=== PATIENT | female | born 1985 | race Caucasian/White ===

== ENCOUNTER 2022-04-05 21:25 | Observation (INO) | payer BC ==
[2022-04-05 21:42] VITALS: BMI 24.1
[2022-04-05] MEDS ORDERED: Zolpidem Tartrate 5 MG TAB PO PRN (22:24)
[2022-04-05] MEDS ORDERED: traMADol HCl 50 MG TAB PO PRN (22:28)
[2022-04-05] MEDS ORDERED: Ondansetron PF 4 MG/2 ML Vial IVP PRN (22:29)
[2022-04-05] MEDS: Acetaminophen 500 MG TAB PO SCH (23:41)
[2022-04-06] MEDS: Ibuprofen 800 MG TAB PO SCH ×2 (00:46→08:51)
[2022-04-06 04:29] LABS: #Basophils 0.1 10x3/uL (0.0-0.2); #Eosinphils 0.1 10x3/uL (0.0-0.5); %Basophils 0.4 % (0.0-2.0); %Eosinophils 1.1 % (0.0-6.0); %Lymphocytes 20.1 % (18.0-47.0); %Monocytes 8.9 % (0.0-10.0); %Neutrophils 69.2 % (40.0-75.0); Hemoglobin 11.5 g/dL (12.0-15.5); Mean Corpuscular HGB CONC 34.7 g/dL (32.0-36.0); Mean Corpuscular Hemoglobin 31.6 pg (27.0-33.0); Mean Corpuscular Volume 90.9 fl (81.6-98.3); Mean Platelet Volume 9.5 fl (7.4-10.4); Platelet Count 235 10x3/uL (150-450); RBC Distribution Width 12.1 % (11.5-14.5); Red Blood Cell (RBC) Count 3.64 10x6/uL (3.90-5.03); White Blood Cell (WBC) Count 11.5 10x3/uL (3.5-10.5)
[2022-04-06] MEDS: Acetaminophen 500 MG TAB PO SCH ×2 (06:37→12:05)
[2022-04-06 11:24] LABS: Hemoglobin 11.3 g/dL (12.0-15.5); Mean Corpuscular HGB CONC 33.9 g/dL (32.0-36.0); Mean Corpuscular Hemoglobin 31.3 pg (27.0-33.0); Mean Corpuscular Volume 92.2 fl (81.6-98.3); Mean Platelet Volume 9.5 fl (7.4-10.4); Platelet Count 224 10x3/uL (150-450); RBC Distribution Width 12.2 % (11.5-14.5); Red Blood Cell (RBC) Count 3.61 10x6/uL (3.90-5.03); White Blood Cell (WBC) Count 9.8 10x3/uL (3.5-10.5)
[2022-04-06 12:22] VITALS: BP 97/53; TEMP 97.6
== END 2022-04-06 13:00 | disposition home or self-care (01) ==
LOC: INTOOBSV 21:25 → CSHPP 21:25
PROVIDERS: ADMIT Obstetrics & Gynecology; ATTEND Obstetrics & Gynecology
DX: N83.209 Unspecified ovarian cyst, unspecified side (principal); F17.210 Nicotine dependence, cigarettes, uncomplicated
CPT/HCPCS: 36415; 85025